=== PATIENT | male | born 2000 | race Hispanic/Latino ===

== ENCOUNTER 2021-10-25 18:30 | Emergency (ER) | payer SELFPAY ==
[2021-10-25 18:43] VITALS: BP 147/70; PULSE 65; RESP 16; TEMP 37.3; O2SAT 100
--- NOTE | 2021-10-25 19:06 | ED.GENADULT ---
HPI - General Adult General Chief complaint: Weakness Stated complaint: Sob/Dizziness Time Seen by Provider: 10/25/21 19:06 Source: patient Mode of arrival: ambulatory Limitations: no limitations History of Present Illness HPI narrative: 21-year-old Croatian speaking male presented for complaint of 2 brief episodes of feeling weak and lightheaded earlier today. States his ears felt full of air and he felt like his heart was racing At this time he currently just feels weak. Denies shortness of breath, cough, nausea, vomiting, diarrhea, fevers or chills. Denies sick contacts. Denies medical history. Does not smoke or use drugs. Requests girlfriend translate. Related Data Home Medications Medication Instructions Recorded Confirmed No Home Medications 10/25/21 10/25/21 Allergies Allergy/AdvReac Type Severity Reaction Status Date / Time No Known Allergies Allergy Verified 10/25/21 18:56 Review of Systems Review of Systems: ROS negative except as in HPI All systems reviewed & are unremarkable except as noted in HPI and below PMFSH Comments At time of signature, I have reviewed and agree with nursing past medical, surgical, social and family history unless otherwise noted. Please see nursing chart for further information. There is no relevant family history pertinent to the presenting complaint Exam Narrative: GENERAL: Well-appearing. HEAD: Normocephalic, atraumatic. EYES: EOMI. PERRLA No redness or drainage. Conjunctivae normal. ENT: Mucous membranes pink and moist. No rhinorrhea. TMs normal bilaterally. Throat normal. Uvula midline. NECK: Normal AROM. Supple. No lymphadenopathy. CHEST: Clear to auscultation. HEART: Regular rate and rhythm. No murmur appreciated. Normal peripheral pulses. ABDOMEN: Soft, nontender, nondistended, normal active bowel sounds. SKIN: Warm, dry, no rash. Capillary refill normal. Normal skin turgor. NEURO: No focal deficits. Alert and oriented x3. Gait steady. Course Course Emergency Course: Patient is aware of diagnosis, understands and agrees to treatment plan. Anticipatory guidance given. Patient agrees to follow-up as directed and is aware of reasons to seek care at the emergency department. Portions of this record may have been created with voice recognition software Level of Care: [facility] Visit Vital Signs Vital signs: Vital Signs Temperature 99.2 F 10/25/21 18:43 Pulse Rate 65 10/25/21 18:43 Respiratory Rate 16 10/25/21 18:43 Blood Pressure 147/70 H 10/25/21 18:43 Pulse Oximetry 100 10/25/21 18:43 Oxygen Delivery Room Air 10/25/21 18:43 Temperature 99.2 F 10/25/21 18:43 Pulse Rate 65 10/25/21 18:43 Respiratory Rate 16 10/25/21 18:43 Blood Pressure 147/70 H 10/25/21 18:43 Pulse Oximetry 100 10/25/21 18:43 Oxygen Delivery Room Air 10/25/21 18:43 Medical Decision Making MDM Narrative Medical decision making narrative: EKG reviewed with pt, he feels better upon arrival to [facility]. Advised to monitor symptoms closely, avoid dehydration, and go to the ER for worsening symptoms or concerns. v/u . Differential Diagnosis Differential Diagnosis: dehydration, anxiety, GERD, vertigo Vital Signs Vital Signs: Vital Signs Temperature 99.2 F 10/25/21 18:43 Pulse Rate 65 10/25/21 18:43 Respiratory Rate 16 10/25/21 18:43 Blood Pressure 147/70 H 10/25/21 18:43 Pulse Oximetry 100 10/25/21 18:43 Oxygen Delivery Room Air 10/25/21 18:43 Temperature 99.2 F 10/25/21 18:43 Pulse Rate 65 10/25/21 18:43 Respiratory Rate 16 10/25/21 18:43 Blood Pressure 147/70 H 10/25/21 18:43 Pulse Oximetry 100 10/25/21 18:43 Oxygen Delivery Room Air 10/25/21 18:43 reviewed ECG Data EKG #1: Attestation: I personally reviewed and interpreted this ECG as follows: (Normal sinus rhythm, rate 61, incomplete right bundle branch block, ST elevation probably early repolarization)
--- NOTE | 2021-10-25 19:34 | ECG_ITS ---
Measurements Intervals [place] Rate: 61 P: 33 LA: 132 QRS: 71 QRSD: 92 T: 51 QT: 354 QTc: 359 Interpretive Statements SINUS RHYTHM INCOMPLETE RIGHT BUNDLE BRANCH BLOCK [90+ ms QRS DURATION, TERMINAL R IN V1/V2, 40+ ms S IN I/aVL/V4/V5/V6] ST ELEVATION, PROBABLY EARLY REPOLARIZATION [ST ELEVATION WITH NORMALLY INFLECTED T WAVE] WITHIN NORMAL LIMITS FOR AGE NO PREVIOUS ECG AVAILABLE FOR COMPARISON Electronically Signed On 10-27-2021 16:02:18 CDT by Fabian Coffey M.D.
== END 2021-10-25 19:48 | disposition home or self-care (01) ==
PROVIDERS: Emergency Provider Nurse Practitioner Family
DX: R53.1 Weakness (principal); I45.10 Unspecified right bundle-branch block
CPT/HCPCS: 93005; 99213; G0463